=== PATIENT | male | born 1950 | race Caucasian/White ===

== ENCOUNTER 2024-10-18 12:41 | Emergency (ER) | payer MEDICARE, OTHER ==
[~2024-10-18] VITALS: Ht 172.7 cm; Wt 68.0 kg
[2024-10-18 13:00] VITALS: BP 140/78; TEMP 98.1
[2024-10-18] MEDS ORDERED: LIDO30AD10 TP (15:14)
[2024-10-18] MEDS ORDERED: IBUP-1955 PO (15:14)
[2024-10-18] MEDS ORDERED: CYCL5TAB PO (15:14)
[2024-10-18 16:27] VITALS: O2SAT 98
== END 2024-10-18 16:28 | disposition home or self-care (01) ==
LOC: ER 13:24
DX: S46.912A Strain of unspecified muscle, fascia and tendon at shoulder and upper arm level, left arm, initial encounter (principal); S09.90XA Unspecified injury of head, initial encounter; M79.602 Pain in left arm; F43.10 Post-traumatic stress disorder, unspecified; F32.A Depression, unspecified; N18.9 Chronic kidney disease, unspecified; F17.200 Nicotine dependence, unspecified, uncomplicated; K58.9 Irritable bowel syndrome, unspecified; Z90.49 Acquired absence of other specified parts of digestive tract; Z60.2 Problems related to living alone; V18.2XXA Unspecified pedal cyclist injured in noncollision transport accident in nontraffic accident, initial encounter; Y93.89 Activity, other specified; Y92.89 Other specified places as the place of occurrence of the external cause; Y99.8 Other external cause status
CPT/HCPCS: 70450-TC; 72125-TC; 73030-TC; 73060-TC

== ENCOUNTER 2024-10-23 09:46 | Inpatient (IN) | payer MEDICARE, OTHER ==
[~2024-10-23] VITALS: Ht 172.7 cm; Wt 58.5 kg
[~2024-10-23 09:46] MED LIST: CYCL5TAB PO; IBUP-1955 PO; LIDO30AD10 TP
[2024-10-23] MEDS ORDERED: PROPOFOL 100 ML ONE (10:44)
[2024-10-23] MEDS ORDERED: PROPOFOL 20 ML IV ONE (10:44)
[2024-10-23 11:28] LABS: BASOPHILS # (AUTO) 0.1 K/uL (0.0-0.2); BASOPHILS % (AUTO) 0.6 % (0.0-2.0); EOSINOPHILS # (AUTO) 0.1 K/uL (0.0-0.7); HEMATOCRIT 38 % (39-51); HEMOGLOBIN 12.8 g/dL (13.5-17.5); LYMPHOCYTES # (AUTO) 1.4 K/uL (0.8-4.8); LYMPHOCYTES % (AUTO) 17.5 % (20.0-44.0); MEAN CORPUSCULAR HEMOGLOBIN 30 PG (26.0-33.0); MEAN CORPUSCULAR HGB CONC 34 g/dl (31.0-36.0); MEAN CORPUSCULAR VOLUME 90 fL (80-96); MONOCYTES # (AUTO) 0.8 K/uL (0.1-1.30); NEUTROPHILS # (AUTO) 5.8 K/uL (1.8-8.9); NEUTROPHILS % (AUTO) 70.9 % (43.0-81.0); PLATELET COUNT (AUTO) 358 K/uL (150-450); RED BLOOD CELL COUNT(AUTO) 4.24 MIL/uL (4.5-6.0); RED CELL DISTRIBUTION WIDTH 13.8 % (11.5-15.0); WHITE BLOOD COUNT (AUTO) 8.1 K/uL (4.3-11.0)
[2024-10-23 11:49] LABS: CALCIUM, SERUM 8.7 mg/dL (8.5-10.1); CREATININE 0.9 mg/dL (0.6-1.3); MAGNESIUM 2.2 mg/dL (1.8-2.4); PHOSPHORUS 2.7 mg/dL (2.5-4.9); POTASSIUM 3.9 mmol/L (3.5-5.1)
[2024-10-23] MEDS ORDERED: ACETAMINOPHEN 325 MG TABLET PO PRN (15:00)
[2024-10-23] MEDS ORDERED: ZOLPIDEM TARTRATE 5 MG TABLET PO PRN (15:00)
[2024-10-23] MEDS ORDERED: POLYETHYLENE GLYCOL 3350 17 GM POWD.PACK PO PRN (15:00)
[2024-10-23] MEDS ORDERED: Z GUARD REMEDY 4 OZ OINT TP PRN (15:00)
[2024-10-23] MEDS ORDERED: MAG HYDROX/AL HYDROX/SIMETH 30 ML UDC PO PRN (15:00)
[2024-10-23] MEDS ORDERED: MAGNESIUM HYDROXIDE 30 ML UDC PO PRN (15:00)
[2024-10-23] MEDS ORDERED: ONDANSETRON HCL/PF 4 MG/2 ML VIAL IVP PRN (15:00)
[2024-10-23] MEDS: PANTOPRAZOLE 40 MG TABLET.DR PO SCH (15:52)
[2024-10-23 16:11] VITALS: BP 126/74; TEMP 98.6; O2SAT 97
[2024-10-23] MEDS: HYDROCODONE/APAP 5/325MG TABLET PO PRN (21:04)
[2024-10-23] MEDS: SENNOSIDES 8.6 MG TABLET PO SCH (21:08)
[2024-10-24 04:21] VITALS: BP 139/89; TEMP 98.2; O2SAT 97
[2024-10-24 07:28] LABS: BASOPHILS % (AUTO) 0.5 % (0.0-2.0); EOSINOPHILS # (AUTO) 0.2 K/uL (0.0-0.7); EOSINOPHILS % (AUTO) 3.5 % (0.0-6.0); HEMATOCRIT 37 % (39-51); HEMOGLOBIN 12.4 g/dL (13.5-17.5); LYMPHOCYTES % (AUTO) 33.8 % (20.0-44.0); MEAN CORPUSCULAR HEMOGLOBIN 30 PG (26.0-33.0); MEAN CORPUSCULAR HGB CONC 33 g/dl (31.0-36.0); MEAN CORPUSCULAR VOLUME 90 fL (80-96); MONOCYTES # (AUTO) 0.6 K/uL (0.1-1.30); MONOCYTES % (AUTO) 10.6 % (2.0-12.0); NEUTROPHILS # (AUTO) 3.1 K/uL (1.8-8.9); NEUTROPHILS % (AUTO) 51.6 % (43.0-81.0); PLATELET COUNT (AUTO) 329 K/uL (150-450); RED BLOOD CELL COUNT(AUTO) 4.12 MIL/uL (4.5-6.0); RED CELL DISTRIBUTION WIDTH 13.6 % (11.5-15.0); WHITE BLOOD COUNT (AUTO) 5.9 K/uL (4.3-11.0)
[2024-10-24 07:46] LABS: CALCIUM, SERUM 7.8 mg/dL (8.5-10.1); CREATININE 0.9 mg/dL (0.6-1.3); MAGNESIUM 2.1 mg/dL (1.8-2.4); PHOSPHORUS 2.3 mg/dL (2.5-4.9); POTASSIUM 3.8 mmol/L (3.5-5.1)
[2024-10-24 08:00] VITALS: BP 131/91; TEMP 98.6; O2SAT 98
[2024-10-24 08:30] LABS: THYROID STIMULATING HORMONE 1.88 uIU/mL (0.358-3.74)
[2024-10-24] MEDS: THIAMINE HCL 100 MG TABLET PO SCH (08:32)
[2024-10-24 16:00] VITALS: BP 123/79; TEMP 98.6; O2SAT 98
[2024-10-24] MEDS: K PHOS NEUTRAL 250 MG TABLET PO ONE (16:40)
[2024-10-24] MEDS ORDERED: CT SWABBABLE VALVE TRANS SET 1 EA INFUS.SET MC ONE (17:06)
[2024-10-24] MEDS ORDERED: IOHEXOL-300 100 ML VIAL IV ONE (17:06)
[2024-10-24] MEDS ORDERED: IV NS 0.9% 250 ML IV ONE (17:07)
[2024-10-24] MEDS ORDERED: DIATR MEGLU/DIATRIZOATE SODIUM 30 ML BOTTLE (GASTROGRAPHIN) ONE (17:21)
[2024-10-24 20:00] VITALS: BP 128/68; TEMP 97.3; O2SAT 97
[2024-10-25 04:00] VITALS: BP_SYST 120; BP_SYST 128; BP_DIAS 68; BP_DIAS 84; TEMP 98.1; TEMP 98.2; O2SAT 97; O2SAT 98
[2024-10-25 06:41] LABS: BASOPHILS % (AUTO) 0.7 % (0.0-2.0); EOSINOPHILS # (AUTO) 0.2 K/uL (0.0-0.7); EOSINOPHILS % (AUTO) 3.4 % (0.0-6.0); HEMATOCRIT 37 % (39-51); HEMOGLOBIN 12.8 g/dL (13.5-17.5); LYMPHOCYTES # (AUTO) 1.7 K/uL (0.8-4.8); LYMPHOCYTES % (AUTO) 26.9 % (20.0-44.0); MEAN CORPUSCULAR HEMOGLOBIN 31 PG (26.0-33.0); MEAN CORPUSCULAR HGB CONC 34 g/dl (31.0-36.0); MEAN CORPUSCULAR VOLUME 89 fL (80-96); MONOCYTES # (AUTO) 0.7 K/uL (0.1-1.30); MONOCYTES % (AUTO) 11.3 % (2.0-12.0); NEUTROPHILS # (AUTO) 3.5 K/uL (1.8-8.9); NEUTROPHILS % (AUTO) 57.7 % (43.0-81.0); PLATELET COUNT (AUTO) 348 K/uL (150-450); RED BLOOD CELL COUNT(AUTO) 4.17 MIL/uL (4.5-6.0); RED CELL DISTRIBUTION WIDTH 13.3 % (11.5-15.0); WHITE BLOOD COUNT (AUTO) 6.1 K/uL (4.3-11.0)
[2024-10-25 06:55] LABS: ALBUMIN 3.5 g/dL (3.4-5.0); BILIRUBIN,TOTAL 0.5 mg/dL (0.2-1.0); CALCIUM, SERUM 8.3 mg/dL (8.5-10.1); CREATININE 0.8 mg/dL (0.6-1.3); MAGNESIUM 2.1 mg/dL (1.8-2.4); PHOSPHORUS 2.5 mg/dL (2.5-4.9); TOTAL PROTEIN, SERUM 6.3 g/dL (6.4-8.2)
[2024-10-25] MEDS ORDERED: diphenhydrAMINE HCL 50 MG/ML VIAL IM PRN (12:30)
[2024-10-25] MEDS ORDERED: HALOPERIDOL LACTATE INJ 5 MG/ML VIAL IM PRN (12:30)
[2024-10-25] MEDS ORDERED: METHYL SALICYLATE/MENTHOL 28GM 28 GM TUBE TP PRN (15:30)
[2024-10-25 16:00] VITALS: BP 110/74; TEMP 97.7; O2SAT 98
[2024-10-25 17:17] LABS: IRON, SERUM 35 ug/dl (50-175); TOTAL IRON BINDING CAPACITY 352 ug/dl (250-450)
[2024-10-25] MEDS: HALOPERIDOL 5 MG TABLET PO SCH (17:27)
[2024-10-25 17:33] LABS: FREE PSA 0.22 ng/mL (0.00-45); PROSTATE SPECIFIC ANTIGEN SCR 1.58 ng/mL (0.00-4.00)
[2024-10-25 18:00] LABS: FERRITIN 103 ng/mL (8-388)
[2024-10-25 20:00] VITALS: BP 128/66; TEMP 98.4; O2SAT 94
[2024-10-25] MEDS: DIVALPROEX SODIUM 250 MG TABLET.DR PO SCH (22:23)
[2024-10-26 04:00] VITALS: BP 103/77; TEMP 98; O2SAT 95
[2024-10-26 08:00] VITALS: BP 103/77; TEMP 98; O2SAT 95
[2024-10-26] MEDS: DIAZEPAM 2 MG TABLET PO PRN (09:36)
[2024-10-26 16:00] VITALS: BP 115/69; TEMP 97.9; O2SAT 95
[2024-10-26] MEDS: SOD FERRIC GLUC 125 MG in IV NS 0.9% 100 ML IV SCH (16:00)
[2024-10-26 21:27] VITALS: BP 122/78; TEMP 98.2; O2SAT 97
[2024-10-27 04:49] VITALS: BP 98/56; TEMP 99.1; O2SAT 99
[2024-10-27 07:06] LABS: FOLIC ACID 7.4 ng/mL (>3.0)
[2024-10-27 08:00] VITALS: BP 120/88; TEMP 98.4; O2SAT 96
[2024-10-27 08:08] LABS: IMMUNOGLOBULIN A, SERUM 296 mg/dL (61-437); IMMUNOGLOBULIN G, SERUM 872 mg/dL (603-1613); IMMUNOGLOBULIN M, SERUM 38 mg/dL (15-143)
[2024-10-27 08:24] LABS: BASOPHILS % (AUTO) 0.4 % (0.0-2.0); EOSINOPHILS # (AUTO) 0.2 K/uL (0.0-0.7); EOSINOPHILS % (AUTO) 2.3 % (0.0-6.0); HEMATOCRIT 40 % (39-51); HEMOGLOBIN 13.5 g/dL (13.5-17.5); LYMPHOCYTES # (AUTO) 1.5 K/uL (0.8-4.8); LYMPHOCYTES % (AUTO) 22.1 % (20.0-44.0); MEAN CORPUSCULAR HEMOGLOBIN 30 PG (26.0-33.0); MEAN CORPUSCULAR HGB CONC 34 g/dl (31.0-36.0); MEAN CORPUSCULAR VOLUME 90 fL (80-96); MONOCYTES # (AUTO) 0.6 K/uL (0.1-1.30); MONOCYTES % (AUTO) 9.1 % (2.0-12.0); NEUTROPHILS # (AUTO) 4.6 K/uL (1.8-8.9); NEUTROPHILS % (AUTO) 66.1 % (43.0-81.0); PLATELET COUNT (AUTO) 379 K/uL (150-450); RED BLOOD CELL COUNT(AUTO) 4.45 MIL/uL (4.5-6.0); RED CELL DISTRIBUTION WIDTH 13.7 % (11.5-15.0); WHITE BLOOD COUNT (AUTO) 6.9 K/uL (4.3-11.0)
[2024-10-27 12:22] LABS: BILIRUBIN,TOTAL 0.4 mg/dL (0.2-1.0); CALCIUM, SERUM 8.8 mg/dL (8.5-10.1); MAGNESIUM 2.2 mg/dL (1.8-2.4); PHOSPHORUS 2.8 mg/dL (2.5-4.9); POTASSIUM 3.8 mmol/L (3.5-5.1); TOTAL PROTEIN, SERUM 7.1 g/dL (6.4-8.2)
[2024-10-27 13:07] LABS: *SPE A/G RATIO 1.2 (0.7-1.7); *SPE ALBUMIN 3.6 g/dL (2.9-4.4); *SPE ALPHA-1-GLOBULIN 0.3 g/dL (0.0-0.4); *SPE ALPHA-2-GLOBULIN 0.7 g/dL (0.4-1.0); *SPE BETA GLOBULIN 1.1 g/dL (0.7-1.3); *SPE M-SPIKE Not Observed g/dL (Not Observed); *SPE PROTEIN TOTAL 6.6 g/dL (6.0-8.5); *SPEGAMMA GLOBULIN 0.8 g/dL (0.4-1.8); FREE KAPPA LT CHAINS SERUM 21.3 mg/L (3.3-19.4); FREE LAMBDA LT CHAIN SERUM 16.5 mg/L (5.7-26.3); KAPPA/LAMBDA RATIO SERUM 1.29 (0.26-1.65)
[2024-10-27 16:00] VITALS: BP 126/72; TEMP 98.3; O2SAT 98
== END 2024-10-27 16:10 | disposition home or self-care (01) | DRG 389 ==
LOC: DS 09:46 → MEDSG1 12:41
PROVIDERS: ADMIT Nurse Practitioner Acute Care
PROC: 0DJD8ZZ Inspection of Lower Intestinal Tract, Via Natural or Artificial Opening Endoscopic (ICD-10-PCS; principal; 2024-10-23)
DX: K56.690 Other partial intestinal obstruction (principal); C19 Malignant neoplasm of rectosigmoid junction; K62.5 Hemorrhage of anus and rectum; K58.1 Irritable bowel syndrome with constipation; F43.10 Post-traumatic stress disorder, unspecified; D63.8 Anemia in other chronic diseases classified elsewhere; R79.89 Other specified abnormal findings of blood chemistry; F41.9 Anxiety disorder, unspecified; F29 Unspecified psychosis not due to a substance or known physiological condition; F32.9 Major depressive disorder, single episode, unspecified; R19.09 Other intra-abdominal and pelvic swelling, mass and lump; Z53.8 Procedure and treatment not carried out for other reasons; D50.9 Iron deficiency anemia, unspecified; G89.29 Other chronic pain; F20.9 Schizophrenia, unspecified; Z90.49 Acquired absence of other specified parts of digestive tract
CPT/HCPCS: 36415; 71045-TC; 71250-TC; 73030-TC; 73090-TC; 80048-TC; 80053-TC; 80061-TC; 82378; 82607-TC; 82728-TC; 82784; 83540-TC; 83735-TC; 84100-TC; 84153-TC; 84154-TC; 84155; 84165; 84443-TC; 85025-TC; 86334; 97110-TC; 97112-TC; 97116-TC; 97530-TC; A4223; G0378; J2704; J2916; J3490; J7030; J7050; J7120; Q9963; Q9967